=== PATIENT | male | born 1990 | race Caucasian/White ===

== ENCOUNTER 2025-01-09 16:58 | Observation (INO) ==
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
[2025-01-09 17:35] LABS: Hematocrit (blood only) 47.0 % (42.0-52.0); Hemoglobin 16.5 g/dL (14.0-18.0); Immature Granulocytes # (auto) 0.03 K/uL (0.01-0.20); Immature Granulocytes % (auto) 0.3 %; Mean Corpuscular Hemoglobin 32.3 pg (25.0-34.0); Mean Corpuscular Volume 92.0 fL (80.0-100.0); Platelet Count 227 K/uL (130-400); RDW Standard Deviation 41.8 fL (36.4-46.3); Red Blood Count 5.11 M/uL (4.70-6.10); White Blood Count 10.27 K/ul (4.8-10.8)
[2025-01-09 17:53] LABS: Alanine Aminotransferase 16.0 U/L (7-52); Albumin Globulin Ratio 1.3 (0.9-2); Albumin Level 4.0 gm/dl (3.4-5.0); Alkaline Phosphatase 62.0 U/L (34-104); Anion Gap 8.0 (3-11); Bilirubin,Total 0.3 mg/dl (0.2-1.0); Blood Urea Nitrogen 12.0 mg/dl (6-23); Calcium 8.7 mg/dl (8.6-10.3); Carbon Dioxide 21.0 mmol/L (21-32); Chloride 109.0 mmol/L (98-107); Creatinine Clr Calc Pharmacy 142.3 ml/min; Globulin 3.0 gm/dl (2.5-4.0); Glucose 108.0 mg/dl (70-99(Fasting)); Lipase 19.0 U/L (11-82); Magnesium 2.2 mg/dl (1.7-2.4); Potassium 4.4 mmol/L (3.5-5.1); Sodium 138.0 mmol/L (136-145); Total Protein 7.0 gm/dl (6.0-8.3)
--- NOTE | 2025-01-09 18:01 | XRay Report ---
Clinical History: Chest pain and seizures Technique: 2 frontal views of the chest were obtained Findings: There are no definite pulmonary infiltrates. The heart size is within normal limits. No pleural effusion or pneumothorax is seen. There is no definite pulmonary nodule. No fracture is noted. No foreign body is seen Impression: No active disease Electronically signed by Héctor Portillo 01-09-2025 5:59 PM
[2025-01-09 18:03] LABS: INR 1.1 (0.9-1.1); Prothrombin Time 11.2 Seconds (9.0-12.0)
[2025-01-09 18:07] LABS: Thyroid Stimulating Hormone 0.905 uIu/ml (0.300-4.500)
--- NOTE | 2025-01-09 18:13 | CT Scan Report ---
Clinical History: Headaches and seizure. Technique: Axial computed tomography images were obtained of the brain from the vertex to the skull base without intravenous contrast. Findings: There is no sign of intracranial hemorrhage. There is normal atkinson-white matter differentiation with no sign of acute or old infarction. No midline shift or other form of herniation is identified. There is no hydrocephalus. No obvious mass lesion is seen on this noncontrast examination. The visualized portions of the orbits and paranasal sinuses appear unremarkable. The mastoid air cells appear clear Impression: Unremarkable noncontrast CT of the brain Electronically signed by Héctor Portillo 01-09-2025 6:13 PM
[2025-01-09 18:15] LABS: Appearance Urine Clear (Clear); Bacteria Urine Automated None Seen (None Seen); Epithelial Cell Urine Auto 0-2 /hpf (0-2); Glucose Urine UA Negative (Negative); RBC Urine Automated 0-2 /hpf (0-2); WBC Urine Automated 0-5 /hpf (0-5)
[2025-01-09 18:22] LABS: Chlamydia pneumoniae PCR Not Detected (NotDetected); Coronavirus 229E PCR Not Detected (NotDetected); Coronavirus CoV-2 (COVID19)PCR Not Detected (NotDetected); Coronavirus HKU1 PCR Not Detected (NotDetected); Coronavirus NL63 PCR Not Detected (NotDetected); Coronavirus OC43PCR Not Detected (NotDetected); Human Metapneumovirus PCR Not Detected (NotDetected); Parainfluenza Virus 1 PCR Not Detected (NotDetected); Parainfluenza Virus 2 PCR Not Detected (NotDetected); Parainfluenza Virus 3 PCR Not Detected (NotDetected); Parainfluenza Virus 4 PCR Not Detected (NotDetected); Respiratory Syncytial VirusPCR Not Detected (NotDetected); Rhinovirus/Enterovirus PCR Not Detected (NotDetected)
[2025-01-09 18:42] LABS: Amphetamines+Metham, Urine Neg (Neg); MDMA (Ecstacy), Urine Neg (Neg); Marijuana, Urine Pos (Neg)
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
[2025-01-09] MEDS ORDERED: BUPRENORPHINE/NALOXONE 8/2 MG TAB SL STA (21:14)
[2025-01-09] MEDS: LACTATED RINGER'S 1,000 ML IV SCH (21:29)
[2025-01-09] MEDS: NICOTINE 21 MG/24 HR TDSY TD STA (21:29)
[2025-01-09] MEDS ORDERED: POLYETHYLENE (MIRALAX) 17 GM PACK PO PRN (22:21)
[2025-01-09] MEDS ORDERED: DOCUSATE SODIUM 100 MG CAP PO PRN (22:21)
[2025-01-09] MEDS ORDERED: LORazepam 0.5 MG TAB PO PRN (22:21)
[2025-01-09] MEDS ORDERED: ACETAMINOPHEN 325 MG TAB PO PRN (22:21)
[2025-01-10 06:55] LABS: Hematocrit (blood only) 41.9 % (42.0-52.0); Hemoglobin 14.5 g/dL (14.0-18.0); Immature Granulocytes # (auto) 0.03 K/uL (0.01-0.20); Immature Granulocytes % (auto) 0.3 %; Mean Corpuscular Hemoglobin 31.7 pg (25.0-34.0); Mean Corpuscular Volume 91.5 fL (80.0-100.0); Platelet Count 183 K/uL (130-400); RDW Standard Deviation 41.9 fL (36.4-46.3); Red Blood Count 4.58 M/uL (4.70-6.10); White Blood Count 9.15 K/ul (4.8-10.8)
[2025-01-10 07:25] LABS: Anion Gap 10.0 (3-11); Blood Urea Nitrogen 16.0 mg/dl (6-23); Calcium 9.3 mg/dl (8.6-10.3); Carbon Dioxide 21.0 mmol/L (21-32); Chloride 108.0 mmol/L (98-107); Creatinine Clr Calc Pharmacy 87.2 ml/min; Glucose 99.0 mg/dl (70-99(Fasting)); Magnesium 2.1 mg/dl (1.7-2.4); Potassium 4.2 mmol/L (3.5-5.1); Sodium 139.0 mmol/L (136-145)
[2025-01-10] MEDS: SODIUM CHLORIDE 0.9% 500 ML IV ONE (08:48)
[2025-01-10] MEDS: lamoTRIgine 25 MG TAB PO SCH (08:49)
[2025-01-10] MEDS: REMOVE NICODERM PATCH SCH (08:49)
[2025-01-10] MEDS: ESCITALOPRAM OXALATE 20 MG TAB PO SCH (08:49)
[2025-01-10] MEDS: busPIRone 5 MG TAB PO SCH (08:49)
[2025-01-10] MEDS: NICOTINE 21 MG/24 HR TDSY TD SCH (08:50)
[2025-01-10] MEDS: levETIRAcetam 500 MG TAB PO SCH (08:50)
[2025-01-10] MEDS ORDERED: REMOVE NICODERM PATCH SCH (08:59)
[2025-01-10] MEDS: ONDANSETRON INJ 2 MG/ML 2 ML VIAL IV PRN (11:59)
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
[2025-01-10] MEDS ORDERED: METOCLOPRAMIDE HCL INJ 5 MG/ML 2 ML VIAL IV PRN (15:32)
[2025-01-10] MEDS: SODIUM CHLORIDE 0.9% 500 ML IV SCH (15:53)
--- NOTE | 2025-01-10 18:42 | Electrocardiogram Report ---
Test Reason : Blood Pressure : */* mmHG Vent. Rate : 80 BPM Atrial Rate : 80 BPM P-R Int : 140 ms QRS Dur : 94 ms QT Int : 364 ms P-R-T Axes : 76 64 54 degrees QTcB Int : 419 ms Normal sinus rhythm Possible Left atrial enlargement Incomplete right bundle branch block When compared with ECG of 29-Jul-2024 15:07, No significant change was found Confirmed by Thong Ojeda ([id number]) on 01/10/2025 6:42:11 PM Referred By: REFERRED SELF Confirmed By: Thong Ojeda
[2025-01-10] MEDS: MELATONIN 3 MG TAB PO PRN (20:14)
[2025-01-11 07:37] VITALS: RESP 18
[2025-01-11 08:31] LABS: Hematocrit (blood only) 40.0 % (42.0-52.0); Hemoglobin 14.0 g/dL (14.0-18.0); Immature Granulocytes # (auto) 0.02 K/uL (0.01-0.20); Immature Granulocytes % (auto) 0.3 %; Mean Corpuscular Hemoglobin 32.3 pg (25.0-34.0); Mean Corpuscular Volume 92.2 fL (80.0-100.0); Platelet Count 178 K/uL (130-400); RDW Standard Deviation 42.4 fL (36.4-46.3); Red Blood Count 4.34 M/uL (4.70-6.10); White Blood Count 6.97 K/ul (4.8-10.8)
[2025-01-11 08:45] LABS: Anion Gap 13.0 (3-11); Blood Urea Nitrogen 19.0 mg/dl (6-23); Calcium 9.6 mg/dl (8.6-10.3); Carbon Dioxide 20.0 mmol/L (21-32); Chloride 107.0 mmol/L (98-107); Creatinine Clr Calc Pharmacy 102.6 ml/min; Glucose 77.0 mg/dl (70-99(Fasting)); Magnesium 1.6 mg/dl (1.7-2.4); Potassium 4.4 mmol/L (3.5-5.1); Sodium 140.0 mmol/L (136-145)
[2025-01-11 11:22] VITALS: PULSE 71; TEMP 99; O2SAT 94
[2025-01-11 12:34] VITALS: BP 117/71
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
== END 2025-01-11 12:51 | disposition home or self-care (01) ==
LOC: 2S 16:58 → ED 16:58 → SUATTDRO 21:07 → 2S 22:00